=== PATIENT | female | born 1975 | race Caucasian/White ===

== ENCOUNTER 2018-03-21 19:05 | Emergency (ER) | payer OTHER, SELFPAY ==
[2018-03-21 19:30] VITALS: BP 138/85; PULSE 91; RESP 16; TEMP 37.1; O2SAT 99
--- NOTE | 2018-03-21 20:07 | ED.URI ---
HPI - URI/Sore Throat <Itzel Marie PA-C - Last Filed: 03/21/18 22:19> General Chief Complaint: Upper Respiratory Symptoms Stated Complaint: DIFFICULTY BREATHING, COUGH Time Seen by Provider: 03/21/18 19:19 Source: patient Mode of arrival: ambulatory Limitations: no limitations History of Present Illness HPI Narrative: This 42-year-old female who is 16 weeks presents with 3 day history of cough and chest congestion, with sensation of air hunger. She states that exhaling tends to make her cough. She states she has a little bit of pressure in her chest but not pain. She has not noted wheeze. She has also had increasing nasal congestion since yesterday, especially today. She has had some postnasal drip. She does not have earache or sore throat. She denies fever, chills, or sweats. She states that she has had some sinus pressure/headache since we have had the smoky air here, but does not feel like it is a sinus infection. She has allergies, and was also diagnosed with reactive airways earlier in the spring. She was given an inhaler and has been using this, states it has been helping quite a bit until earlier today when it just does not seem to be working as well. Related Data Home Medications Medication Instructions Recorded Confirmed fluticasone [Flonase Allergy 1 spray INTRANASAL QDAY #0 10/08/16 Relief] Previous Rx's Medication Instructions Recorded neomycin-polymyxin B-dexameth 1 drp OPHTH QID #5 ml 10/08/16 [Maxitrol] hydrocodone-acetaminophen [[place]] 1 - 2 tab PO Q6HP PRN #15 tab 04/13/17 budesonide [Pulmicort Flexhaler] 3 inhalation INHALATION BID #1 each 03/21/18 Allergies Allergy/AdvReac Type Severity Reaction Status Date / Time mercury (elemental) Allergy Unknown ANAPHYLAXIS Unverified 11/08/17 12:29 [MERCURY (ELEMENTAL)] latex [LATEX] AdvReac Severe RAASH, Unverified 11/08/17 12:29 BLISTERS amalgam used in dental AdvReac Unknown Uncoded 11/08/17 12:29 Review of Systems <Itzel Marie PA-C - Last Filed: 03/21/18 22:19> Review of Systems All systems reviewed & are unremarkable except as noted in HPI and below Exam <Itzel Marie PA-C - Last Filed: 03/21/18 22:19> Narrative Exam Narrative: GENERAL APPEARANCE: Patient sitting comfortably, in no distress. HEAD: No sinus TTP. EYES: PERRL, EOMI. EARS: Normal auditory canals, TMS intact with normal light reflexes. NOSE: Congested, edematous mucosa ORAL CAVITY: Normal oropharynx. THROAT: No erythema or exudate, PND noted NECK/THYROID: Neck supple, full range of motion, no cervical lymphadenopathy. LUNGS: Clear to auscultation bilaterally, hoarse cough on exam EXTREMITIES: No edema or calf tenderness HEART: RRR without murmur, nl S1, S2, no S3 or S4. EXTREMITIES: No edema, no calf tenderness Initial Vital Signs Initial Vital Signs: Vital Signs Temperature 98.8 F 03/21/18 19:30 Pulse Rate 91 H 03/21/18 19:30 Respiratory Rate 16 03/21/18 19:30 Blood Pressure 138/85 H 03/21/18 19:30 Pulse Oximetry 99 03/21/18 19:30 <Moe Menjivar DO - Last Filed: 03/22/18 07:08> Initial Vital Signs Initial Vital Signs: Vital Signs Temperature 98.8 F 03/21/18 19:30 Pulse Rate 91 H 03/21/18 19:30 Respiratory Rate 16 03/21/18 19:30 Blood Pressure 138/85 H 03/21/18 19:30 Pulse Oximetry 99 03/21/18 19:30 Course <Itzel Marie PA-C - Last Filed: 03/21/18 22:19> Additional Information: Patient is feeling significantly improved in terms of her chest tightness and breathing after nebulizer treatment. She has the symptoms in the setting of known allergies and reactive airways. She has had increasing nasal congestion and sinus pressure and may also have a viral URI on top of our severe air quality problems due to smoke locally. Explained I suspect this is the source of her symptoms. Will start Pulmicort inhaler (she prefers not to use any oral steroids), along with having her increase her albuterol as needed and continuing her current allergy medications. She agrees to return if any acutely worsening symptoms Orders Ordered: Discontinued Medications Albuterol (Ventolin) 2.5 mg INH NOW ONE Stop: 03/21/18 20:19 Last Admin: 03/21/18 20:19 Dose: 2.5 mg Vital Signs - 8 hr 03/21/18 19:30 03/21/18 21:25 Temperature 98.8 F Pulse Rate 91 H 101 H Respiratory Rate 16 20 Blood Pressure 138/85 H 133/76 H Pulse Oximetry 99 99 <Moe Otto, DO - Last Filed: 03/22/18 07:08> Orders Ordered: Discontinued Medications Albuterol (Ventolin) 2.5 mg INH NOW ONE Stop: 03/21/18 20:19 Last Admin: 03/21/18 20:19 Dose: 2.5 mg Vital Signs - 8 hr 03/21/18 19:30 03/21/18 21:25 Temperature 98.8 F Pulse Rate 91 H 101 H Respiratory Rate 16 20 Blood Pressure 138/85 H 133/76 H Pulse Oximetry 99 99 Discharge Plan Departure Patient Disposition: Home Clinical Impression: Mild intermittent reactive airways dysfunction syndrome with acute exacerbation, Environmental allergies, URI (upper respiratory infection) Discharge Date/Time: 03/21/18 21:26 Interventions: ED Discharge Assessment Last Done: 03/21/18 21:25 Instructions: DI for Reactive Airway Disease-Adult Activity Restrictions/Additional Instructions: It appears that you have allergies and probably a virus as well that are exacerbating your reactive airways. Some of this is a reaction to the smoky air we are experiencing now, so please stay indoors with windows closed. Please return right away if you have any acutely worsening symptoms as we talked about. Otherwise, use your albuterol as often as needed for tight chest, difficulty breathing or cough. Start the steroid inhaler that I prescribed for you twice daily. Use it with your spacer and rinse your mouth out after. Continue your allergy medicines including Benadryl at night. Best wishes with your ! Prescriptions: New budesonide [Pulmicort Flexhaler] 90 mcg/actuation aerosol powdr breath activated 3 inhalation INHALATION BID Qty: 1 RF: 0 No Action fluticasone [Flonase Allergy Relief] 9.9 ML spray,suspension 1 spray Intranasal QDAY Qty: 0 RF: 0 neomycin-polymyxin B-dexameth [Maxitrol] 5 ML drops,suspension 1 drp OPHTH QID Qty: 5 RF: 0 hydrocodone-acetaminophen [[place]] 5 MG/325 MG tablet 1 - 2 tab PO Q6HP PRNQty: 15 RF: 0 Referrals: [facility] [Provider Group] <Moe Menjivar, - Last Filed: 03/22/18 07:08> Coszainab ED Attending Dena Attestation: I was available for consultation during this patient's emergency department encounter
[2018-03-21] MEDS: ALBUTEROL 2.5 MG/3 ML NEB (ADULT) INH (20:19)
--- NOTE | 2018-03-21 20:24 | ED_ITS ---
HPI - URI/Sore Throat <Itzel Marie PA-C - Last Filed: 03/21/18 22:19> General Chief Complaint: Upper Respiratory Symptoms Stated Complaint: DIFFICULTY BREATHING, COUGH Time Seen by Provider: 03/21/18 19:19 Source: patient Mode of arrival: ambulatory Limitations: no limitations History of Present Illness HPI Narrative: This 42-year-old female who is 16 weeks presents with 3 day history of cough and chest congestion, with sensation of air hunger. She states that exhaling tends to make her cough. She states she has a little bit of pressure in her chest but not pain. She has not noted wheeze. She has also had increasing nasal congestion since yesterday, especially today. She has had some postnasal drip. She does not have earache or sore throat. She denies fever , chills, or sweats. She states that she has had some sinus pressure/headache since we have had the smoky air here, but does not feel like it is a sinus infection. She has allergies, and was also diagnosed with reactive airways earlier in the spring. She was given an inhaler and has been using this, states it has been helping quite a bit until earlier today when it just does not seem to be working as well. Related Data Home Medications Medication Instructions Recorded Confirmed fluticasone [Flonase Allergy 1 spray INTRANASAL QDAY #0 10/08/16 Relief] Previous Rx's Medication Instructions Recorded neomycin-polymyxin B-dexameth 1 drp OPHTH QID #5 ml 10/08/16 [Maxitrol] hydrocodone-acetaminophen [[place]] 1 - 2 tab PO Q6HP PRN #15 tab 04/13/17 budesonide [Pulmicort Flexhaler] 3 inhalation INHALATION BID #1 each 03/21/18 Allergies Allergy/AdvReac Type Severity Reaction Status Date / Time mercury (elemental) Allergy Unknown ANAPHYLAXIS Unverified 11/08/17 12:29 [MERCURY (ELEMENTAL)] latex [LATEX] AdvReac Severe RAASH, Unverified 11/08/17 12:29 BLISTERS amalgam used in dental AdvReac Unknown Uncoded 11/08/17 12:29 Review of Systems <Itzel aMrie PA-C - Last Filed: 03/21/18 22:19> Review of Systems All systems reviewed & are unremarkable except as noted in HPI and below Exam <Itzel Marie PA-C - Last Filed: 03/21/18 22:19> Narrative Exam Narrative: GENERAL APPEARANCE: Patient sitting comfortably, in no distress. HEAD: No sinus TTP. EYES: PERRL, EOMI. EARS: Normal auditory canals, TMS intact with normal light reflexes. NOSE: Congested, edematous mucosa ORAL CAVITY: Normal oropharynx. THROAT: No erythema or exudate, PND noted NECK/THYROID: Neck supple, full range of motion, no cervical lymphadenopathy. LUNGS: Clear to auscultation bilaterally, hoarse cough on exam EXTREMITIES: No edema or calf tenderness HEART: RRR without murmur, nl S1, S2, no S3 or S4. EXTREMITIES: No edema, no calf tenderness Initial Vital Signs Initial Vital Signs: Vital Signs Temperature 98.8 F 03/21/18 19:30 Pulse Rate 91 H 03/21/18 19:30 Respiratory Rate 16 03/21/18 19:30 Blood Pressure 138/85 H 03/21/18 19:30 Pulse Oximetry 99 03/21/18 19:30 <Moe Menjivar DO - Last Filed: 03/22/18 07:08> Initial Vital Signs Initial Vital Signs: Vital Signs Temperature 98.8 F 03/21/18 19:30 Pulse Rate 91 H 03/21/18 19:30 Respiratory Rate 16 03/21/18 19:30 Blood Pressure 138/85 H 03/21/18 19:30 Pulse Oximetry 99 03/21/18 19:30 Course <Itzel Marie PA-C - Last Filed: 03/21/18 22:19> Additional Information: Patient is feeling significantly improved in terms of her chest tightness and breathing after nebulizer treatment. She has the symptoms in the setting of known allergies and reactive airways. She has had increasing nasal congestion and sinus pressure and may also have a viral URI on top of our severe air quality problems due to smoke locally. Explained I suspect this is the source of her symptoms. Will start Pulmicort inhaler (she prefers not to use any oral steroids), along with having her increase her albuterol as needed and continuing her current allergy medications. She agrees to return if any acutely worsening symptoms Orders Ordered: Discontinued Medications Albuterol (Ventolin) 2.5 mg INH NOW ONE Stop: 03/21/18 20:19 Last Admin: 03/21/18 20:19 Dose: 2.5 mg Vital Signs - 8 hr 03/21/18 19:30 03/21/18 21:25 Temperature 98.8 F Pulse Rate 91 H 101 H Respiratory Rate 16 20 Blood Pressure 138/85 H 133/76 H Pulse Oximetry 99 99 <Moe Otto, DO - Last Filed: 03/22/18 07:08> Orders Ordered: Discontinued Medications Albuterol (Ventolin) 2.5 mg INH NOW ONE Stop: 03/21/18 20:19 Last Admin: 03/21/18 20:19 Dose: 2.5 mg Vital Signs - 8 hr 03/21/18 19:30 03/21/18 21:25 Temperature 98.8 F Pulse Rate 91 H 101 H Respiratory Rate 16 20 Blood Pressure 138/85 H 133/76 H Pulse Oximetry 99 99 Discharge Plan Departure Patient Disposition: Home Clinical Impression: Mild intermittent reactive airways dysfunction syndrome with acute exacerbation , Environmental allergies, URI (upper respiratory infection) Discharge Date/Time: 03/21/18 21:26 Interventions: ED Discharge Assessment Last Done: 03/21/18 21:25 Instructions: DI for Reactive Airway Disease-Adult Activity Restrictions/Additional Instructions: It appears that you have allergies and probably a virus as well that are exacerbating your reactive airways. Some of this is a reaction to the smoky air we are experiencing now, so please stay indoors with windows closed. Please return right away if you have any acutely worsening symptoms as we talked about. Otherwise, use your albuterol as often as needed for tight chest , difficulty breathing or cough. Start the steroid inhaler that I prescribed for you twice daily. Use it with your spacer and rinse your mouth out after. Continue your allergy medicines including Benadryl at night. Best wishes with your ! Prescriptions: New budesonide [Pulmicort Flexhaler] 90 mcg/actuation aerosol powdr breath activated 3 inhalation INHALATION BID Qty: 1 RF: 0 No Action fluticasone [Flonase Allergy Relief] 9.9 ML spray,suspension 1 spray Intranasal QDAY Qty: 0 RF: 0 neomycin-polymyxin B-dexameth [Maxitrol] 5 ML drops,suspension 1 drp OPHTH QID Qty: 5 RF: 0 hydrocodone-acetaminophen [[place]] 5 MG/325 MG tablet 1 - 2 tab PO Q6HP PRNQty: 15 RF: 0 Referrals: [facility] [Provider Group] <Moe Menjivar, - Last Filed: 03/22/18 07:08> Coszainab ED Attending Dena Attestation: I was available for consultation during this patient's emergency department encounter
--- NOTE | 2018-03-21 20:58 | PC.NURSE ---
Pt has cough and difficulty breathing x2 weeks, worsening with smoke exposure outside. Complains of some substernal pressure as well. Developed some sinus congestion today. She is 16.5 weeks . Her albuterol at home is no longer relieving her symptoms.
--- NOTE | 2018-03-21 21:01 | PC.NURSE ---
Coughing less frequent. Chest pressure mostly resolved after albuterol treatment. Provider aware. No new orders.
[2018-03-21 21:25] VITALS: BP 133/76; PULSE 101; RESP 20; O2SAT 99
== END 2018-03-21 21:26 | disposition home or self-care (01) ==
PROVIDERS: Emergency Provider Internal Medicine
DX: J45.909 Unspecified asthma, uncomplicated (principal); J06.9 Acute upper respiratory infection, unspecified; Z91.09 Other allergy status, other than to drugs and biological substances
CPT/HCPCS: 94640; 99283; J7613

== ENCOUNTER 2018-04-20 13:14 | Emergency (ER) | payer OTHER, SELFPAY ==
[2018-04-20 13:20] VITALS: BP 132/81; PULSE 121; RESP 18; TEMP 38.7; O2SAT 100
--- NOTE | 2018-04-20 14:26 | ED.DENTAL ---
HPI - Dental/Oral General Chief complaint: Dental/Oral Stated complaint: 22 WKS PREG,LEFT SIDE FACE SWELLING Time Seen by Provider: 04/20/18 13:36 Source: patient and family Mode of arrival: ambulatory Limitations: no limitations History of Present Illness HPI Narrative: 42-year-old female, at 22 weeks with history of Sjogren's presents with significant, rapidly worsening left facial swelling since 12:30 a.m.. She denies runny nose or sore throat. She denies any injury. She has no chest pain or cough. She denies any abdominal pain nor vaginal bleeding or discharge. She does have a history a filling on her left molar that had fallen out but the patient has no dental pain. She saw her dentist earlier today who did a thorough examination including x-rays and states this is not an odontogenic source, at which point she was transferred here. Her care is provided by [facility] in [place] given her high risk secondary to Sjogren's Onset (ago): hour(s) Duration: constant Severity: moderate Relieving factors: nothing Related Data Home Medications Medication Instructions Recorded Confirmed fluticasone [Flonase Allergy 1 spray INTRANASAL QDAY #0 10/08/16 04/20/18 Relief] acetaminophen 1 tab PO PRN PRN 04/20/18 04/20/18 albuterol sulfate [ProAir HFA] 1 puff INHALATION DIRECTED 04/20/18 04/20/18 aspirin 1 tab PO DAILY 04/20/18 04/20/18 cholecalciferol (vitamin D3) 5,000 unit PO DAILY 04/20/18 04/20/18 [Vitamin D3] cyanocobalamin (vitamin B-12) 1 tab PO DAILY 04/20/18 04/20/18 [Vitamin B-12] cyclosporine [Restasis] 1 drp OPHTHALMIC (EYE) DAILY 04/20/18 04/20/18 fish,bora,flax oils-om3,6,9no1 1 cap PO DAILY 04/20/18 04/20/18 [[place] 3-6-9] folic acid 0.4 mg PO DAILY 04/20/18 04/20/18 loratadine 10 mg PO DAILY 04/20/18 04/20/18 olopatadine [Pazeo] 1 drp OPHTHALMIC (EYE) DIRECTED 04/20/18 04/20/18 [id number] fum-folic 1 tab PO DAILY 04/20/18 04/20/18 Previous Rx's Medication Instructions Recorded amoxicillin-pot clavulanate 1 tab PO BID #20 tab 04/20/18 [Augmentin] prednisone See Label Instructions .ROUTE 04/20/18 .COMPLEX #30 tab Allergies Allergy/AdvReac Type Severity Reaction Status Date / Time mercury (elemental) Allergy Unknown ANAPHYLAXIS Unverified 11/08/17 12:29 [MERCURY (ELEMENTAL)] latex [LATEX] AdvReac Severe RAASH, Unverified 11/08/17 12:29 BLISTERS amalgam used in dental AdvReac Unknown Uncoded 11/08/17 12:29 Review of Systems Review of Systems All systems reviewed & are unremarkable except as noted in HPI and below Constitutional Reports chills, Reports fever(s), Denies lethargy and Denies weakness Eyes Denies change in vision, Denies eye discharge, Denies irritation and Denies loss of vision ENT Ears, Nose, Mouth, and Throat: Denies change in voice, Reports facial pain, Denies neck pain and Denies sore throat Comments: facial swelling Cardiovascular Denies chest pain, Reports rapid heart rate, Denies irregular heart rhythm, Denies lightheadedness, Denies palpitations, Denies dyspnea, Denies dyspnea on exertion and Denies orthopnea Respiratory Denies cough, Denies dyspnea, Denies dyspnea on exertion and Denies wheezing Gastrointestinal Gastrointestinal: Denies abdominal pain, Denies change in bowel habits, Denies diarrhea, Denies nausea and Denies vomiting Genitourinary Denies hematuria, Denies flank pain, Denies urinary incontinence and Denies urinary urgency Musculoskeletal Denies neck pain Integumentary/Breasts Denies pruritus, Denies erythema, Denies rash and Denies wounds Neurologic Denies confusion, Denies loss of vision and Denies weakness Psychiatric Denies anxiety, Denies confusion, Denies depression, Denies homicidal ideation and Denies suicidal ideation Endocrine Denies palpitations Hematologic/Lymphatic Denies easy bruising Allergic/Immunologic Denies wheezing [facility] Medical History Pollen allergies (Chronic) Reactive airway disease (Chronic) Sjogrens syndrome (Chronic) Social History (Reviewed 04/20/18 @ 14:39 by LACY Avalos Smoking Status: Former smoker Exam Narrative Exam Narrative: Pleasant 42-year-old female in moderate distress Initial Vital Signs Initial Vital Signs: Vital Signs Temperature 101.7 F H 04/20/18 13:20 Pulse Rate 121 H 04/20/18 13:20 Respiratory Rate 18 04/20/18 13:20 Blood Pressure 132/81 04/20/18 13:20 Pulse Oximetry 100 04/20/18 13:20 Const General: cooperative, well developed and in distress Nutritional Appearance: well nourished Orientation: alert, awake, oriented x3 and not confused HENOK Head: normocephalic and atraumatic Ears: external ears normal and TM's normal bilaterally Nose: external nose normal and No nasal discharge Face and sinus: sinuses nontender, erythema, edema (Significant left-sided facial swelling with overlying erythema), no sinus tenderness and No dry mucous membranes Mouth: oral mucosae normal and moist mucous membranes Teeth and gingiva: dentition normal Throat: tonsils normal and uvula midline Eyes General: appearance normal, both eyes and all related structures Eyelids: eyelids normal Conjunctivae: conjunctivae normal Sclera: sclerae normal Pupils: PERRL EOM: EOM intact bilaterally Neck Neck: normal visual inspection, trachea midline, No lymphadenopathy, No midline deformity and No JVD Lymphatic: No lymphedema Chest Chest: normal inspection of the chest Cardio Rate: regular rate Rhythm: regular rhythm Heart Sounds: no click, no gallops, no murmurs and no rubs Pulses: normal peripheral pulses GI Inspection: non-distended Palpation: soft, no hepatosplenomegaly, No guarding, No pulsatile mass and No tender Auscultation: normal bowel sounds Other: Gravid uterus to the umbilicus Back/Spine/Pelvis Back: No CVA tenderness Cervical Spine: cervical ROM normal and No pain with cervical ROM Thoracic/Lumbar Spine: thoracic and lumbar spine normal to inspection Skin General: no rashes or lesions noted, No jaundice and No petechiae Neuro General: alert, oriented x3, gait normal and no focal motor deficits Speech: speech normal Extrem General: full ROM, no clubbing, cyanosis or edema, no pedal edema and no calf tenderness Course Course Narrative: Lengthy discussion at the bedside with patient and her regarding the choice IV antibiotics as well as CT scan with IV contrast for evaluation the significant facial swelling, fever and tachycardia. They understand the risks and benefits of the proposed therapies and are in agreement with this plan. They have a signed consent Orders Ordered: ED Orders 04/20/18 14:15 Complete Blood Count AUTO DIFF Stat Lactate (Lactic Acid) Stat Procalcitonin Stat 04/20/18 14:34 Basic Metabolic Panel Stat 04/20/18 14:48 CT soft tissue neck w con Stat 04/20/18 15:25 Blood Culture Stat Discontinued Medications Sodium Chloride (Normal Saline 0.9%) 1,000 mls @ 1,000 mls/hr IV BOLUS ONE Stop: 04/20/18 14:57 Last Admin: 04/20/18 14:48 Dose: 1,000 mls/hr Ampicillin Sodium/Sulbactam (Sodium 3 gm/ Sodium Chloride) 100 mls @ 100 mls/hr IV NOW ONE Stop: 04/20/18 14:17 Last Admin: 04/20/18 14:48 Dose: 100 mls/hr Consultations Consultation #1: call to ENT and review of patient's history and physical, labs and imaging. He recommends high-dose antibiotics and steroids with close follow-up Called to patient's terrazzo worker apprentice to consult with regarding medications and she is fully on board with Augmentin and prednisone. She will put in a stat referral to ENT on the patient's behalf Time: 15:59 Vital Signs - 8 hr 04/20/18 13:20 04/20/18 15:52 Temperature 101.7 F H 100.3 F H Pulse Rate 121 H Respiratory Rate 18 Blood Pressure 132/81 Pulse Oximetry 100 MDM - Dental/Oral Medical Records Attestation: I reviewed the patient's medical records. Lab Data Result diagrams: 04/20/18 14:15 04/20/18 14:34 Lab Results 04/20/18 04/20/18 04/20/18 Range/Units 14:15 14:15 14:15 WBC 18.0 H (4.5-11.0) X10^3/uL RBC 3.53 L (4.0-5.2) X10^6/uL Hgb 11.1 L (12.0-16.0) g/dL Hct 32.6 L (36-46) % MCV 92.3 (80-100) fL MCH 31.4 (26-34) PG MCHC 34.0 (30-36) % RDW 13.2 (11.6-14.8) % Plt Count 183 (150-400) X10^3/uL Neut % (Auto) 93.0 H (50-75) % Lymph % (Auto) 2.9 L (25-40) % [place] % (Auto) 3.9 (3-14) % Eos % (Auto) 0.0 L (2-4) % Baso % (Auto) 0.2 (0-2) % Neut # (Auto) 39237 H (5643-6780) /uL Sodium (137-145) mmol/L Potassium (3.4-5.1) mmol/L Chloride (98-107) mmol/L Carbon Dioxide (22-32) mmol/L BUN (7-17) mg/dL Creatinine (0.52-1.04) mg/dL Estimated GFR (>60) mL/min BUN/Creatinine Ratio (6-22) Glucose (70-100) mg/dL Lactate 0.8 (0.7-2.1) mmol/L Calcium (8.4-10.2) mg/dL Procalcitonin < 0.05 (<0.5) ng/mL 04/20/18 Range/Units 14:34 WBC (4.5-11.0) X10^3/uL RBC (4.0-5.2) X10^6/uL Hgb (12.0-16.0) g/dL Hct (36-46) % MCV (80-100) fL MCH (26-34) PG MCHC (30-36) % RDW (11.6-14.8) % Plt Count (150-400) X10^3/uL Neut % (Auto) (50-75) % Lymph % (Auto) (25-40) % [place] % (Auto) (3-14) % Eos % (Auto) (2-4) % Baso % (Auto) (0-2) % Neut # (Auto) (2791-4112) /uL Sodium 135 L (137-145) mmol/L Potassium 3.4 (3.4-5.1) mmol/L Chloride 103 (98-107) mmol/L Carbon Dioxide 19 L (22-32) mmol/L BUN 8 (7-17) mg/dL Creatinine 0.50 L (0.52-1.04) mg/dL Estimated GFR > 60.0 (>60) mL/min BUN/Creatinine Ratio 16.0 (6-22) Glucose 117 H (70-100) mg/dL Lactate (0.7-2.1) mmol/L Calcium 9.2 (8.4-10.2) mg/dL Procalcitonin (<0.5) ng/mL Discharge Plan Departure Patient Disposition: Home Clinical Impression: Acute sialoadenitis Instructions: DI for Parotitis-Adult Activity Restrictions/Additional Instructions: *You have been diagnosed with [ acute sialoadenitis ] *What to do: *Take medications as directed: The have been electronically transmitted to [facility] hydro request * your glove parts cutter has put in a stat referral for ENT for Monday, please tracking call her office for any troubles. Please return immediately for any worsening or persistent symptoms such as increasing swelling, pain difficulty swallowing or breathing, or other Prescriptions: New amoxicillin-pot clavulanate [Augmentin] 875-125 mg tablet 1 tab PO BID Qty: 20 RF: 0 prednisone 10 mg tablet See Label Instructions .ROUTE .COMPLEX Qty: 30 RF: 0 No Action fluticasone [Flonase Allergy Relief] 9.9 ML spray,suspension 1 spray Intranasal QDAY Qty: 0 RF: 0 aspirin 81 mg tablet,delayed release (DR/EC) 1 tab PO DAILY RF: 0 albuterol sulfate [ProAir HFA] 90 mcg/actuation HFA aerosol inhaler 1 puff Inhalation DIRECTED RF: 0 loratadine 10 mg tablet 10 mg PO DAILY RF: 0 [id number] fum-folic 27 mg iron- 800 mcg tablet 1 tab PO DAILY RF: 0 olopatadine [Pazeo] 0.7 % drops 1 drp ophthalmic (eye) DIRECTED RF: 0 acetaminophen 325 mg Tablet 1 tab PO PRN PRN (Reason: Pain, Mild) RF: 0 cyanocobalamin (vitamin B-12) [Vitamin B-12] 1,000 mcg Tablet 1 tab PO DAILY RF: 0 folic acid 400 mcg Tablet 0.4 mg PO DAILY RF: 0 cyclosporine [Restasis] 0.05 % Dropperette 1 drp ophthalmic (eye) DAILY RF: 0 fish,bora,flax oils-om3,6,9no1 [[place] 3-6-9] 400-400-400 mg Capsule 1 cap PO DAILY RF: 0 cholecalciferol (vitamin D3) [Vitamin D3] 5,000 unit Tablet 5,000 unit PO DAILY RF: 0 Referrals: Kuldeep Joe MD [Physician] -
[2018-04-20 14:28] LABS: Add Manual Diff / Slide Review NO; Basophils Percent Auto 0.2 % (0-2); Hematocrit 32.6 % (36-46); Hemoglobin 11.1 g/dL (12.0-16.0); Lymphocytes Percent Auto 2.9 % (25-40); Mean Corpuscular Hemoglobin 31.4 PG (26-34); Mean Corpuscular Volume 92.3 fL (80-100); Monocytes Percent Auto 3.9 % (3-14); Neutrophils Absolute Auto 16700 /uL (3000-5900); Platelet Count 183 X10^3/uL (150-400); Red Blood Cell Count 3.53 X10^6/uL (4.0-5.2); Red Cell Distribution Width 13.2 % (11.6-14.8)
--- NOTE | 2018-04-20 14:42 | ED_ITS ---
HPI - Dental/Oral General Chief complaint: Dental/Oral Stated complaint: 22 WKS PREG,LEFT SIDE FACE SWELLING Time Seen by Provider: 04/20/18 13:36 Source: patient and family Mode of arrival: ambulatory Limitations: no limitations History of Present Illness HPI Narrative: 42-year-old female, at 22 weeks with history of Sjogren' s presents with significant, rapidly worsening left facial swelling since 12:30 a.m.. She denies runny nose or sore throat. She denies any injury. She has no chest pain or cough. She denies any abdominal pain nor vaginal bleeding or discharge. She does have a history a filling on her left molar that had fallen out but the patient has no dental pain. She saw her dentist earlier today who did a thorough examination including x-rays and states this is not an odontogenic source, at which point she was transferred here. Her care is provided by [facility] in [place] given her high risk secondary to Sjogren's Onset (ago): hour(s) Duration: constant Severity: moderate Relieving factors: nothing Related Data Home Medications Medication Instructions Recorded Confirmed fluticasone [Flonase Allergy 1 spray INTRANASAL QDAY #0 10/08/16 04/20/18 Relief] acetaminophen 1 tab PO PRN PRN 04/20/18 04/20/18 albuterol sulfate [ProAir HFA] 1 puff INHALATION DIRECTED 04/20/18 04/20/18 aspirin 1 tab PO DAILY 04/20/18 04/20/18 cholecalciferol (vitamin D3) 5,000 unit PO DAILY 04/20/18 04/20/18 [Vitamin D3] cyanocobalamin (vitamin B-12) 1 tab PO DAILY 04/20/18 04/20/18 [Vitamin B-12] cyclosporine [Restasis] 1 drp OPHTHALMIC (EYE) DAILY 04/20/18 04/20/18 fish,bora,flax oils-om3,6,9no1 1 cap PO DAILY 04/20/18 04/20/18 [[place] 3-6-9] folic acid 0.4 mg PO DAILY 04/20/18 04/20/18 loratadine 10 mg PO DAILY 04/20/18 04/20/18 olopatadine [Pazeo] 1 drp OPHTHALMIC (EYE) DIRECTED 04/20/18 04/20/18 [id number] fum-folic 1 tab PO DAILY 04/20/18 04/20/18 Previous Rx's Medication Instructions Recorded amoxicillin-pot clavulanate 1 tab PO BID #20 tab 04/20/18 [Augmentin] prednisone See Label Instructions .ROUTE 04/20/18 .COMPLEX #30 tab Allergies Allergy/AdvReac Type Severity Reaction Status Date / Time mercury (elemental) Allergy Unknown ANAPHYLAXIS Unverified 11/08/17 12:29 [MERCURY (ELEMENTAL)] latex [LATEX] AdvReac Severe RAASH, Unverified 11/08/17 12:29 BLISTERS amalgam used in dental AdvReac Unknown Uncoded 11/08/17 12:29 Review of Systems Review of Systems All systems reviewed & are unremarkable except as noted in HPI and below Constitutional Reports chills, Reports fever(s), Denies lethargy and Denies weakness Eyes Denies change in vision, Denies eye discharge, Denies irritation and Denies loss of vision ENT Ears, Nose, Mouth, and Throat: Denies change in voice, Reports facial pain, Denies neck pain and Denies sore throat Comments: facial swelling Cardiovascular Denies chest pain, Reports rapid heart rate, Denies irregular heart rhythm, Denies lightheadedness, Denies palpitations, Denies dyspnea, Denies dyspnea on exertion and Denies orthopnea Respiratory Denies cough, Denies dyspnea, Denies dyspnea on exertion and Denies wheezing Gastrointestinal Gastrointestinal: Denies abdominal pain, Denies change in bowel habits, Denies diarrhea, Denies nausea and Denies vomiting Genitourinary Denies hematuria, Denies flank pain, Denies urinary incontinence and Denies urinary urgency Musculoskeletal Denies neck pain Integumentary/Breasts Denies pruritus, Denies erythema, Denies rash and Denies wounds Neurologic Denies confusion, Denies loss of vision and Denies weakness Psychiatric Denies anxiety, Denies confusion, Denies depression, Denies homicidal ideation and Denies suicidal ideation Endocrine Denies palpitations Hematologic/Lymphatic Denies easy bruising Allergic/Immunologic Denies wheezing [facility] Medical History Pollen allergies (Chronic) Reactive airway disease (Chronic) Sjogrens syndrome (Chronic) Social History (Reviewed 04/20/18 @ 14:39 by LACY Avalos Smoking Status: Former smoker Exam Narrative Exam Narrative: Pleasant 42-year-old female in moderate distress Initial Vital Signs Initial Vital Signs: Vital Signs Temperature 101.7 F H 04/20/18 13:20 Pulse Rate 121 H 04/20/18 13:20 Respiratory Rate 18 04/20/18 13:20 Blood Pressure 132/81 04/20/18 13:20 Pulse Oximetry 100 04/20/18 13:20 Const General: cooperative, well developed and in distress Nutritional Appearance: well nourished Orientation: alert, awake, oriented x3 and not confused HENIN Head: normocephalic and atraumatic Ears: external ears normal and TM's normal bilaterally Nose: external nose normal and No nasal discharge Face and sinus: sinuses nontender, erythema, edema (Significant left-sided facial swelling with overlying erythema), no sinus tenderness and No dry mucous membranes Mouth: oral mucosae normal and moist mucous membranes Teeth and gingiva: dentition normal Throat: tonsils normal and uvula midline Eyes General: appearance normal, both eyes and all related structures Eyelids: eyelids normal Conjunctivae: conjunctivae normal Sclera: sclerae normal Pupils: PERRL EOM: EOM intact bilaterally Neck Neck: normal visual inspection, trachea midline, No lymphadenopathy, No midline deformity and No JVD Lymphatic: No lymphedema Chest Chest: normal inspection of the chest Cardio Rate: regular rate Rhythm: regular rhythm Heart Sounds: no click, no gallops, no murmurs and no rubs Pulses: normal peripheral pulses GI Inspection: non-distended Palpation: soft, no hepatosplenomegaly, No guarding, No pulsatile mass and No tender Auscultation: normal bowel sounds Other: Gravid uterus to the umbilicus Back/Spine/Pelvis Back: No CVA tenderness Cervical Spine: cervical ROM normal and No pain with cervical ROM Thoracic/Lumbar Spine: thoracic and lumbar spine normal to inspection Skin General: no rashes or lesions noted, No jaundice and No petechiae Neuro General: alert, oriented x3, gait normal and no focal motor deficits Speech: speech normal Extrem General: full ROM, no clubbing, cyanosis or edema, no pedal edema and no calf tenderness Course Course Narrative: Lengthy discussion at the bedside with patient and her regarding the choice IV antibiotics as well as CT scan with IV contrast for evaluation the significant facial swelling, fever and tachycardia. They understand the risks and benefits of the proposed therapies and are in agreement with this plan. They have a signed consent Orders Ordered: ED Orders 04/20/18 14:15 Complete Blood Count AUTO DIFF Stat Lactate (Lactic Acid) Stat Procalcitonin Stat 04/20/18 14:34 Basic Metabolic Panel Stat 04/20/18 14:48 CT soft tissue neck w con Stat 04/20/18 15:25 Blood Culture Stat Discontinued Medications Sodium Chloride (Normal Saline 0.9%) 1,000 mls @ 1,000 mls/hr IV BOLUS ONE Stop: 04/20/18 14:57 Last Admin: 04/20/18 14:48 Dose: 1,000 mls/hr Ampicillin Sodium/Sulbactam (Sodium 3 gm/ Sodium Chloride) 100 mls @ 100 mls/ hr IV NOW ONE Stop: 04/20/18 14:17 Last Admin: 04/20/18 14:48 Dose: 100 mls/hr Consultations Consultation #1: call to ENT and review of patient's history and physical, labs and imaging. 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 She will put in a stat referral to ENT on the patient's behalf Time: 15:59 Vital Signs - 8 hr 04/20/18 13:20 04/20/18 15:52 Temperature 101.7 F H 100.3 F H Pulse Rate 121 H Respiratory Rate 18 Blood Pressure 132/81 Pulse Oximetry 100 MDM - Dental/Oral Medical Records Attestation: I reviewed the patient's medical records. Lab Data Result diagrams: 04/20/18 14:15 04/20/18 14:34 Lab Results 04/20/18 04/20/18 04/20/18 Range/Units 14:15 14:15 14:15 WBC 18.0 H (4.5-11.0) X10^3/uL RBC 3.53 L (4.0-5.2) X10^6/uL Hgb 11.1 L (12.0-16.0) g/dL Hct 32.6 L (36-46) % MCV 92.3 (80-100) fL MCH 31.4 (26-34) PG MCHC 34.0 (30-36) % RDW 13.2 (11.6-14.8) % Plt Count 183 (150-400) X10^3/uL Neut % (Auto) 93.0 H (50-75) % Lymph % (Auto) 2.9 L (25-40) % [place] % (Auto) 3.9 (3-14) % Eos % (Auto) 0.0 L (2-4) % Baso % (Auto) 0.2 (0-2) % Neut # (Auto) 21258 H (6907-8376) /uL Sodium (137-145) mmol/L Potassium (3.4-5.1) mmol/L Chloride (98-107) mmol/L Carbon Dioxide (22-32) mmol/L BUN (7-17) mg/dL Creatinine (0.52-1.04) mg/dL Estimated GFR (>60) mL/min BUN/Creatinine Ratio (6-22) Glucose (70-100) mg/dL Lactate 0.8 (0.7-2.1) mmol/L Calcium (8.4-10.2) mg/dL Procalcitonin < 0.05 (<0.5) ng/mL 04/20/18 Range/Units 14:34 WBC (4.5-11.0) X10^3/uL RBC (4.0-5.2) X10^6/uL Hgb (12.0-16.0) g/dL Hct (36-46) % MCV (80-100) fL MCH (26-34) PG MCHC (30-36) % RDW (11.6-14.8) % Plt Count (150-400) X10^3/uL Neut % (Auto) (50-75) % Lymph % (Auto) (25-40) % [place] % (Auto) (3-14) % Eos % (Auto) (2-4) % Baso % (Auto) (0-2) % Neut # (Auto) (3987-0738) /uL Sodium 135 L (137-145) mmol/L Potassium 3.4 (3.4-5.1) mmol/L Chloride 103 (98-107) mmol/L Carbon Dioxide 19 L (22-32) mmol/L BUN 8 (7-17) mg/dL Creatinine 0.50 L (0.52-1.04) mg/dL Estimated GFR > 60.0 (>60) mL/min BUN/Creatinine Ratio 16.0 (6-22) Glucose 117 H (70-100) mg/dL Lactate (0.7-2.1) mmol/L Calcium 9.2 (8.4-10.2) mg/dL Procalcitonin (<0.5) ng/mL Discharge Plan Departure Patient Disposition: Home Clinical Impression: Acute sialoadenitis Instructions: DI for Parotitis-Adult Activity Restrictions/Additional Instructions: *You have been diagnosed with [ acute sialoadenitis ] *What to do: *Take medications as directed: The have been electronically transmitted to [facility] hydro request * your tearer has put in a stat referral for ENT for Monday, please tracking call her office for any troubles. Please return immediately for any worsening or persistent symptoms such as increasing swelling, pain difficulty swallowing or breathing, or other Prescriptions: New amoxicillin-pot clavulanate [Augmentin] 875-125 mg tablet 1 tab PO BID Qty: 20 RF: 0 prednisone 10 mg tablet See Label Instructions .ROUTE .COMPLEX Qty: 30 RF: 0 No Action fluticasone [Flonase Allergy Relief] 9.9 ML spray,suspension 1 spray Intranasal QDAY Qty: 0 RF: 0 aspirin 81 mg tablet,delayed release (DR/EC) 1 tab PO DAILY RF: 0 albuterol sulfate [ProAir HFA] 90 mcg/actuation HFA aerosol inhaler 1 puff Inhalation DIRECTED RF: 0 loratadine 10 mg tablet 10 mg PO DAILY RF: 0 [id number]-[id number] fum-folic 27 mg iron- 800 mcg tablet 1 tab PO DAILY RF: 0 olopatadine [Pazeo] 0.7 % drops 1 drp ophthalmic (eye) DIRECTED RF: 0 acetaminophen 325 mg Tablet 1 tab PO PRN PRN (Reason: Pain, Mild) RF: 0 cyanocobalamin (vitamin B-12) [Vitamin B-12] 1,000 mcg Tablet 1 tab PO DAILY RF: 0 folic acid 400 mcg Tablet 0.4 mg PO DAILY RF: 0 cyclosporine [Restasis] 0.05 % Dropperette 1 drp ophthalmic (eye) DAILY RF: 0 fish,bora,flax oils-om3,6,9no1 [[place] 3-6-9] 400-400-400 mg Capsule 1 cap PO DAILY RF: 0 cholecalciferol (vitamin D3) [Vitamin D3] 5,000 unit Tablet 5,000 unit PO DAILY RF: 0 Referrals: Kuldeep Joe MD [Physician] -
[2018-04-20 14:44] LABS: Lactate (Lactic Acid) 0.8 mmol/L (0.7-2.1)
[2018-04-20] MEDS: SODIUM CHLORIDE 0.9% 1,000 ML 1000 ML IV ×2 (14:48→17:55)
[2018-04-20] MEDS: AMPICILLIN/SULBACTAM 3 GM 3 GM in SODIUM CHLORIDE 0.9% 100 ML IV (14:48)
--- NOTE | 2018-04-20 14:48 | DI.CT.S_ITS ---
PROCEDURE: CT SOFT TISSUE NECK W CON INDICATIONS: facial swelling, pain, fever tachycardia, 22wks TECHNIQUE: After the administration of intravenous contrast, 3.0 mm axial sections acquired from the sella to the aortic arch. Additional oblique axial 3.0 mm sections acquired through the pharynx. 3 mm thick coronal and sagittal reformats were generated. For radiation dose reduction, the following was used: automated exposure control. COMPARISON: None. FINDINGS: Image quality: Excellent. Lymph nodes: No frankly enlarged lymph nodes are seen, although numerous borderline bilateral neck lymph nodes are seen can be seen within both sides of the neck. Vessels: Visualized vasculature appears patent. Neck spaces: The oropharynx, nasopharynx, and pharynx demonstrate no mucosal lesions. The vocal cords, false vocal cords, pyriform sinuses, epiglottis, vallecula, and tongue base all appear normal. Extramucosal spaces appear unremarkable. Glands: The left parotid gland is diffusely abnormal, with numerous cystic lesions within it. There is surrounding stranding within the adjacent subcutaneous fat. Similar findings are seen of the right parotid gland, yet much less severe. Numerous small stones are seen within the parotid glands. The submandibular glands are not well-seen. Thyroid gland demonstrates no significant CT abnormality. Miscellaneous: Visualized brain and orbits appear normal. Lung apices appear clear. Superficial soft tissues appear normal. Bones: No suspicious bony lesions. Visualized sinuses and mastoids appear unremarkable. IMPRESSION: Abnormal appearance of the left parotid gland, which is enlarged and hyperenhancing and demonstrates numerous cystic foci within it. There is overlying inflammatory change seen within the subcutaneous fat. The appearance is nonspecific, and may relate to lymphoepithelial cysts, chronic stone disease, parotid inflammation, and Sjogren's syndrome. Neoplastic involvement, including lymphoma and salivary duct carcinoma, is possible, yet considered to be less likely. The right parotid gland is also involved, but to a much less severe degree. Please correlate with known patient history and any prior outside imaging studies. Borderline prominent bilateral cervical lymph nodes are seen, which are likely reactive in nature. The submandibular glands are not well-seen on this study. Dictated by: Nemesio Mena M.D. on 04/20/2018 at 14:53 Transcribed by: SOFIYA on 04/20/2018 at 15:12 Approved by: Nemesio Mena M.D. on 04/20/2018 at 16:18
[2018-04-20 14:53] LABS: Blood Urea Nitrogen 8 mg/dL (7-17); Calcium 9.2 mg/dL (8.4-10.2); Carbon Dioxide 19 mmol/L (22-32); Chloride 103 mmol/L (98-107); Estimated Glomerular Filt Rate > 60.0 mL/min (>60); Glucose 117 mg/dL (70-100); HEMOLYSIS < 15 (0-50); Potassium 3.4 mmol/L (3.4-5.1); Sodium 135 mmol/L (137-145)
[2018-04-20 15:06] LABS: Procalcitonin < 0.05 ng/mL (<0.5)
[2018-04-20 15:52] VITALS: TEMP 37.9
[2018-04-20] MEDS: ONDANSETRON 4 MG/2 ML INJ IV (17:29)
[2018-04-20 17:40] VITALS: BP 120/59; PULSE 118; TEMP 38.9
[2018-04-20 18:10] VITALS: TEMP 38.9
[2018-04-20] MEDS: ACETAMINOPHEN 325 MG TABLET 650 MG PO (18:10)
[2018-04-20 18:55] VITALS: TEMP 37.7
[2018-04-20 18:56] VITALS: BP 115/60; PULSE 109; TEMP 37.7; O2SAT 96
== END 2018-04-20 18:57 | disposition home or self-care (01) ==
PROVIDERS: Emergency Provider Emergency Medicine; Family Provider Obstetrics & Gynecology; PCP Family Medicine
DX: K11.21 Acute sialoadenitis (principal); Z3A.22 22 weeks gestation of pregnancy
CPT/HCPCS: 36415; 36591; 70491; 80048; 83605; 84145; 85025; 87040; 96361; 96365; 96366; 96375; 99283; 99285; J0295; J2405; Q9967

== ENCOUNTER 2018-04-21 18:23 | Emergency (ER) | payer OTHER, SELFPAY ==
[2018-04-21 18:40] VITALS: BP 122/74; PULSE 90; RESP 18; TEMP 36.9; O2SAT 98; BMI 28.8
[2018-04-21 19:00] VITALS: BP 105/67
--- NOTE | 2018-04-21 19:09 | ED.SKABFB ---
HPI - Skin/Abscess/Foreign Bdy General Chief complaint: Skin/Abscess/Foreign Body Stated complaint: LEFT SIDE OF FACE IS SWELLING PAIN Time Seen by Provider: 04/21/18 18:44 Source: patient, family and RN notes reviewed Mode of arrival: ambulatory Limitations: no limitations History of Present Illness HPI narrative: The patient is a 42-year-old female currently 22 weeks with history of soda rinse. She has left-sided facial swelling which started abruptly 36 hr ago. She was seen evaluated yesterday diagnosed with sialoenitis. She was given fluids IV Unasyn and started on prednisone. She says she feels like the swelling is going on around her neck and the pain is coming and going and quite intense at times. She has no trouble swallowing or breathing. He is not feel like her throat is closing. She has been able to keep some fluids down. She has not had her night dose of antibiotics. MD complaint: other Related Data Home Medications Medication Instructions Recorded Confirmed fluticasone [Flonase Allergy 1 spray INTRANASAL QDAY #0 10/08/16 04/20/18 Relief] acetaminophen 1 tab PO PRN PRN 04/20/18 04/20/18 albuterol sulfate [ProAir HFA] 1 puff INHALATION DIRECTED 04/20/18 04/20/18 aspirin 1 tab PO DAILY 04/20/18 04/20/18 cholecalciferol (vitamin D3) 5,000 unit PO DAILY 04/20/18 04/20/18 [Vitamin D3] cyanocobalamin (vitamin B-12) 1 tab PO DAILY 04/20/18 04/20/18 [Vitamin B-12] cyclosporine [Restasis] 1 drp OPHTHALMIC (EYE) DAILY 04/20/18 04/20/18 fish,bora,flax oils-om3,6,9no1 1 cap PO DAILY 04/20/18 04/20/18 [[place] 3-6-9] folic acid 0.4 mg PO DAILY 04/20/18 04/20/18 loratadine 10 mg PO DAILY 04/20/18 04/20/18 olopatadine [Pazeo] 1 drp OPHTHALMIC (EYE) DIRECTED 04/20/18 04/20/18 [id number] fum-folic 1 tab PO DAILY 04/20/18 04/20/18 Previous Rx's Medication Instructions Recorded amoxicillin-pot clavulanate 1 tab PO BID #20 tab 04/20/18 [Augmentin] ondansetron [Zofran ODT] 4 mg PO Q6H PRN #14 tab 04/20/18 prednisone See Label Instructions .ROUTE 04/20/18 .COMPLEX #30 tab hydrocodone-acetaminophen [[place]] 1 tab PO Q4-6H PRN #10 tab 04/21/18 Allergies Allergy/AdvReac Type Severity Reaction Status Date / Time mercury (elemental) Allergy Unknown ANAPHYLAXIS Unverified 11/08/17 12:29 [MERCURY (ELEMENTAL)] latex [LATEX] AdvReac Severe RAASH, Unverified 11/08/17 12:29 BLISTERS amalgam used in dental AdvReac Unknown Uncoded 11/08/17 12:29 Review of Systems Review of Systems All systems reviewed & are unremarkable except as noted in HPI and below Constitutional Denies chills, Denies fever(s), Denies lethargy and Denies weakness ENT Ears, Nose, Mouth, and Throat: Reports as per HPI Cardiovascular Denies chest pain, Denies irregular heart rhythm, Denies lightheadedness, Denies palpitations, Denies dyspnea, Denies dyspnea on exertion and Denies orthopnea Respiratory Denies cough, Denies dyspnea, Denies dyspnea on exertion and Denies wheezing Gastrointestinal Gastrointestinal: Denies abdominal pain, Denies change in bowel habits, Denies diarrhea, Denies nausea and Denies vomiting Musculoskeletal Denies back pain, Denies muscle weakness, Denies numbness and Denies tingling Integumentary/Breasts Denies pruritus, Denies erythema, Denies rash and Denies wounds Neurologic Denies numbness, Denies tingling and Denies weakness Endocrine Denies palpitations Allergic/Immunologic Denies wheezing PFSH Social History Smoking Status: Former smoker Exam Initial Vital Signs Initial Vital Signs: Vital Signs Temperature 98.5 F 04/21/18 18:40 Pulse Rate 90 04/21/18 18:40 Respiratory Rate 18 04/21/18 18:40 Blood Pressure 122/74 04/21/18 18:40 Pulse Oximetry 98 04/21/18 18:40 Const General: cooperative and well developed Nutritional Appearance: well nourished Orientation: alert, awake, oriented x3 and not confused HENMI Face and sinus: other (Left-sided facial swelling on no erythema no significant neck swelling no trismus) Mouth: oral mucosae normal Neck Neck: normal visual inspection, full ROM, no meningeal signs, trachea midline, supple and No anterior neck swelling Chest Chest: normal inspection of the chest Resp Effort & Inspection: normal respiratory effort and no use of accessory muscles Auscultation: clear to auscultation bilaterally Cardio Rhythm: regular rhythm Heart Sounds: S1 normal and S2 normal Skin General: no rashes or lesions noted, No jaundice and No petechiae Neuro General: alert, oriented x3, gait normal and no focal motor deficits Speech: speech normal Course Orders Ordered: ED Orders 04/21/18 19:35 Basic Metabolic Panel Stat Complete Blood Count AUTO DIFF Stat 04/21/18 20:00 Lactate (Lactic Acid) Stat Discontinued Medications Dexamethasone (Decadron) 10 mg IV NOW ONE Stop: 04/21/18 19:32 Last Admin: 04/21/18 19:53 Dose: 10 mg Ampicillin Sodium/Sulbactam (Sodium 3 gm/ Sodium Chloride) 100 mls @ 100 mls/hr IV NOW ONE Stop: 04/21/18 19:32 Last Infusion: 04/21/18 21:59 Dose: 0 mls/hr Admin: 04/21/18 20:28 Dose: 100 mls/hr Sodium Chloride (Normal Saline 0.9%) 1,000 mls @ 1,000 mls/hr IV BOLUS ONE Stop: 04/21/18 20:30 Last Infusion: 04/21/18 21:59 Dose: 1,000 mls/hr Admin: 04/21/18 19:51 Dose: 1,000 mls/hr Morphine Sulfate (Morphine) 2 mg IV NOW ONE Stop: 04/21/18 19:32 Last Admin: 04/21/18 19:53 Dose: 2 mg Vital Signs - 8 hr 04/21/18 18:40 04/21/18 19:00 04/21/18 20:30 Temperature 98.5 F Pulse Rate 90 76 Respiratory Rate 18 Blood Pressure 122/74 Blood Pressure [Right Arm] 105/67 119/74 Pulse Oximetry 98 97 04/21/18 21:30 Temperature Pulse Rate 86 Respiratory Rate Blood Pressure Blood Pressure [Right Arm] 125/82 Pulse Oximetry 98 MDM - Skin/Abscess/Foreign Bdy Lab Data Attestation: I reviewed the patient's lab results. Result diagrams: 04/21/18 19:35 04/21/18 19:35 Lab Results 04/21/18 04/21/18 04/21/18 Range/Units 19:35 19:35 20:00 WBC 18.0 H (4.5-11.0) X10^3/uL RBC 3.08 L (4.0-5.2) X10^6/uL Hgb 10.0 L (12.0-16.0) g/dL Hct 28.7 L (36-46) % MCV 93.3 (80-100) fL MCH 32.5 (26-34) PG MCHC 34.8 (30-36) % RDW 13.6 (11.6-14.8) % Plt Count 182 (150-400) X10^3/uL Neut % (Auto) 93.3 H (50-75) % Lymph % (Auto) 4.1 L (25-40) % [place] % (Auto) 2.5 L (3-14) % Eos % (Auto) 0.0 L (2-4) % Baso % (Auto) 0.1 (0-2) % Neut # (Auto) 23116 H (7480-0259) /uL Sodium 139 (137-145) mmol/L Potassium 3.5 (3.4-5.1) mmol/L Chloride 109 H (98-107) mmol/L Carbon Dioxide 21 L (22-32) mmol/L BUN 7 (7-17) mg/dL Creatinine 0.50 L (0.52-1.04) mg/dL Estimated GFR > 60.0 (>60) mL/min BUN/Creatinine Ratio 14.0 (6-22) Glucose 123 H (70-100) mg/dL Lactate 0.7 (0.7-2.1) mmol/L Calcium 8.9 (8.4-10.2) mg/dL MDM Narrative Medical decision making narrative: I discussed case with ENT doctor Marion, who at this time had no further recommendations and will see her in office early next week. Patient overall is feeling better and is ready and able to go home. The morphine helped with pain. Discharge Plan Departure Patient Disposition: Home Clinical Impression: Acute sialoadenitis Discharge Date/Time: 04/21/18 22:02 Interventions: ED Discharge Assessment Last Done: 04/21/18 22:01 Instructions: Parotitis Activity Restrictions/Additional Instructions: *You have been diagnosed with sialoadenitis *What to do: Increase fluid intake *Continue to take medications as directed Finish all medications and take them as directed [place] 1 tablet every 4 hr or 2 tablets every 6 hr if needed for severe pain *Follow up with your primary care provider in 2-3 days, Call ENT thing Monday morning they will see you knee office early next week *Return to ER if you should have fever, difficulty swallowing, difficulty breathing or any new, worsening or concerning symptoms CONTROLLED SUBSTANCE DISCHARGE (Narcotoic/benzodiazepine/Flexeril/Phenergan) 1. You have been prescribed narcotic medications, it does have acetaminophen/Tylenol/paracetamol in it so do not take extra Tylenol or Tylenol containing products 2. Please understand that we cannot provide further refills of narcotics, benzodiazepines or controlled substances through the ED and her pain management will need to be through your provider. 3. While on these medications you cannot drive or operate heavy machinery. 4. You cannot sign legal documents or perform any duties such as this. 5. As long as you're taking opiate pain medications he should also be taking a stool softener such as Colace, Dulcolax, MiraLAX or prune juice, to help avoid constipation. Prescriptions: New hydrocodone-acetaminophen [[place]] 5-325 mg tablet 1 tab PO Q4-6H PRN (Reason: pain (scale score 4-6)) Qty: 10 RF: 0 No Action fluticasone [Flonase Allergy Relief] 9.9 ML spray,suspension 1 spray Intranasal QDAY Qty: 0 RF: 0 aspirin 81 mg tablet,delayed release (DR/EC) 1 tab PO DAILY RF: 0 albuterol sulfate [ProAir HFA] 90 mcg/actuation HFA aerosol inhaler 1 puff Inhalation DIRECTED RF: 0 loratadine 10 mg tablet 10 mg PO DAILY RF: 0 [id number] fum-folic 27 mg iron- 800 mcg tablet 1 tab PO DAILY RF: 0 olopatadine [[place]aze[place]] 0.7 % drops 1 drp ophthalmic (eye) DIRECTED RF: 0 acetaminophen 325 mg Tablet 1 tab PO PRN PRN (Reason: Pain, Mild) RF: 0 cyanocobalamin (vitamin B-12) [Vitamin B-12] 1,000 mcg Tablet 1 tab PO DAILY RF: 0 folic acid 400 mcg Tablet 0.4 mg PO DAILY RF: 0 cyclosporine [Restasis] 0.05 % [place] 1 drp ophthalmic (eye) DAILY RF: 0 fish,bora,flax oils-om3,6,9no1 [[place] 3-6-9] 400-400-400 mg Capsule 1 cap PO DAILY RF: 0 cholecalciferol (vitamin D3) [Vitamin D3] 5,000 unit Tablet 5,000 unit PO DAILY RF: 0 amoxicillin-pot clavulanate [Augmentin] 875-125 mg tablet 1 tab PO BID Qty: 20 RF: 0 prednisone 10 mg tablet See Label Instructions .ROUTE .COMPLEX Qty: 30 RF: 0 ondansetron [Zofran ODT] 4 mg tablet,disintegrating 4 mg PO Q6H PRN (Reason: nausea and vomiting) Qty: 14 RF: 0 Referrals: [facility] [Provider Group] Camilo Zimmer MD [Primary Care Provider] -
--- NOTE | 2018-04-21 19:36 | ED_ITS ---
HPI - Skin/Abscess/Foreign Bdy General Chief complaint: Skin/Abscess/Foreign Body Stated complaint: LEFT SIDE OF FACE IS SWELLING PAIN Time Seen by Provider: 04/21/18 18:44 Source: patient, family and RN notes reviewed Mode of arrival: ambulatory Limitations: no limitations History of Present Illness HPI narrative: The patient is a 42-year-old female currently 22 weeks with history of soda rinse. She has left-sided facial swelling which started abruptly 36 hr ago. She was seen evaluated yesterday diagnosed with sialoenitis. She was given fluids IV Unasyn and started on prednisone. She says she feels like the swelling is going on around her neck and the pain is coming and going and quite intense at times. She has no trouble swallowing or breathing. He is not feel like her throat is closing. She has been able to keep some fluids down. She has not had her night dose of antibiotics. MD complaint: other Related Data Home Medications Medication Instructions Recorded Confirmed fluticasone [Flonase Allergy 1 spray INTRANASAL QDAY #0 10/08/16 04/20/18 Relief] acetaminophen 1 tab PO PRN PRN 04/20/18 04/20/18 albuterol sulfate [ProAir HFA] 1 puff INHALATION DIRECTED 04/20/18 04/20/18 aspirin 1 tab PO DAILY 04/20/18 04/20/18 cholecalciferol (vitamin D3) 5,000 unit PO DAILY 04/20/18 04/20/18 [Vitamin D3] cyanocobalamin (vitamin B-12) 1 tab PO DAILY 04/20/18 04/20/18 [Vitamin B-12] cyclosporine [Restasis] 1 drp OPHTHALMIC (EYE) DAILY 04/20/18 04/20/18 fish,bora,flax oils-om3,6,9no1 1 cap PO DAILY 04/20/18 04/20/18 [[place] 3-6-9] folic acid 0.4 mg PO DAILY 04/20/18 04/20/18 loratadine 10 mg PO DAILY 04/20/18 04/20/18 olopatadine [Pazeo] 1 drp OPHTHALMIC (EYE) DIRECTED 04/20/18 04/20/18 [id number] fum-folic 1 tab PO DAILY 04/20/18 04/20/18 Previous Rx's Medication Instructions Recorded amoxicillin-pot clavulanate 1 tab PO BID #20 tab 04/20/18 [Augmentin] ondansetron [Zofran ODT] 4 mg PO Q6H PRN #14 tab 04/20/18 prednisone See Label Instructions .ROUTE 04/20/18 .COMPLEX #30 tab hydrocodone-acetaminophen [[place]] 1 tab PO Q4-6H PRN #10 tab 04/21/18 Allergies Allergy/AdvReac Type Severity Reaction Status Date / Time mercury (elemental) Allergy Unknown ANAPHYLAXIS Unverified 11/08/17 12:29 [MERCURY (ELEMENTAL)] latex [LATEX] AdvReac Severe RAASH, Unverified 11/08/17 12:29 BLISTERS amalgam used in dental AdvReac Unknown Uncoded 11/08/17 12:29 Review of Systems Review of Systems All systems reviewed & are unremarkable except as noted in HPI and below Constitutional Denies chills, Denies fever(s), Denies lethargy and Denies weakness ENT Ears, Nose, Mouth, and Throat: Reports as per HPI Cardiovascular Denies chest pain, Denies irregular heart rhythm, Denies lightheadedness, Denies palpitations, Denies dyspnea, Denies dyspnea on exertion and Denies orthopnea Respiratory Denies cough, Denies dyspnea, Denies dyspnea on exertion and Denies wheezing Gastrointestinal Gastrointestinal: Denies abdominal pain, Denies change in bowel habits, Denies diarrhea, Denies nausea and Denies vomiting Musculoskeletal Denies back pain, Denies muscle weakness, Denies numbness and Denies tingling Integumentary/Breasts Denies pruritus, Denies erythema, Denies rash and Denies wounds Neurologic Denies numbness, Denies tingling and Denies weakness Endocrine Denies palpitations Allergic/Immunologic Denies wheezing PFSH Social History Smoking Status: Former smoker Exam Initial Vital Signs Initial Vital Signs: Vital Signs Temperature 98.5 F 04/21/18 18:40 Pulse Rate 90 04/21/18 18:40 Respiratory Rate 18 04/21/18 18:40 Blood Pressure 122/74 04/21/18 18:40 Pulse Oximetry 98 04/21/18 18:40 Const General: cooperative and well developed Nutritional Appearance: well nourished Orientation: alert, awake, oriented x3 and not confused [place]EN[place] Face and sinus: other (Left-sided facial swelling on no erythema no significant neck swelling no trismus) Mouth: oral mucosae normal Neck Neck: normal visual inspection, full ROM, no meningeal signs, trachea midline, supple and No anterior neck swelling Chest Chest: normal inspection of the chest Resp Effort & Inspection: normal respiratory effort and no use of accessory muscles Auscultation: clear to auscultation bilaterally Cardio Rhythm: regular rhythm Heart Sounds: S1 normal and S2 normal Skin General: no rashes or lesions noted, No jaundice and No petechiae Neuro General: alert, oriented x3, gait normal and no focal motor deficits Speech: speech normal Course Orders Ordered: ED Orders 04/21/18 19:35 Basic Metabolic Panel Stat Complete Blood Count AUTO DIFF Stat 04/21/18 20:00 Lactate (Lactic Acid) Stat Discontinued Medications Dexamethasone (Decadron) 10 mg IV NOW ONE Stop: 04/21/18 19:32 Last Admin: 04/21/18 19:53 Dose: 10 mg Ampicillin Sodium/Sulbactam (Sodium 3 gm/ Sodium Chloride) 100 mls @ 100 mls/ hr IV NOW ONE Stop: 04/21/18 19:32 Last Infusion: 04/21/18 21:59 Dose: 0 mls/hr Admin: 04/21/18 20:28 Dose: 100 mls/hr Sodium Chloride (Normal Saline 0.9%) 1,000 mls @ 1,000 mls/hr IV BOLUS ONE Stop: 04/21/18 20:30 Last Infusion: 04/21/18 21:59 Dose: 1,000 mls/hr Admin: 04/21/18 19:51 Dose: 1,000 mls/hr Morphine Sulfate (Morphine) 2 mg IV NOW ONE Stop: 04/21/18 19:32 Last Admin: 04/21/18 19:53 Dose: 2 mg Vital Signs - 8 hr 04/21/18 18:40 04/21/18 19:00 04/21/18 20:30 Temperature 98.5 F Pulse Rate 90 76 Respiratory Rate 18 Blood Pressure 122/74 Blood Pressure [Right Arm] 105/67 119/74 Pulse Oximetry 98 97 04/21/18 21:30 Temperature Pulse Rate 86 Respiratory Rate Blood Pressure Blood Pressure [Right Arm] 125/82 Pulse Oximetry 98 MDM - Skin/Abscess/Foreign Bdy Lab Data Attestation: I reviewed the patient's lab results. Result diagrams: 04/21/18 19:35 04/21/18 19:35 Lab Results 04/21/18 04/21/18 04/21/18 Range/Units 19:35 19:35 20:00 WBC 18.0 H (4.5-11.0) X10^3/uL RBC 3.08 L (4.0-5.2) X10^6/uL Hgb 10.0 L (12.0-16.0) g/dL Hct 28.7 L (36-46) % MCV 93.3 (80-100) fL MCH 32.5 (26-34) PG MCHC 34.8 (30-36) % RDW 13.6 (11.6-14.8) % Plt Count 182 (150-400) X10^3/uL Neut % (Auto) 93.3 H (50-75) % Lymph % (Auto) 4.1 L (25-40) % [place] % (Auto) 2.5 L (3-14) % Eos % (Auto) 0.0 L (2-4) % Baso % (Auto) 0.1 (0-2) % Neut # (Auto) 89372 H (5785-8179) /uL Sodium 139 (137-145) mmol/L Potassium 3.5 (3.4-5.1) mmol/L Chloride 109 H (98-107) mmol/L Carbon Dioxide 21 L (22-32) mmol/L BUN 7 (7-17) mg/dL Creatinine 0.50 L (0.52-1.04) mg/dL Estimated GFR > 60.0 (>60) mL/min BUN/Creatinine Ratio 14.0 (6-22) Glucose 123 H (70-100) mg/dL Lactate 0.7 (0.7-2.1) mmol/L Calcium 8.9 (8.4-10.2) mg/dL MDM Narrative Medical decision making narrative: I discussed case with ENT doctor Marion, who at this time had no further recommendations and will see her in office early next week. Patient overall is feeling better and is ready and able to go home. The morphine helped with pain. Discharge Plan Departure Patient Disposition: Home Clinical Impression: Acute sialoadenitis Discharge Date/Time: 04/21/18 22:02 Interventions: ED Discharge Assessment Last Done: 04/21/18 22:01 Instructions: Parotitis Activity Restrictions/Additional Instructions: *You have been diagnosed with sialoadenitis *What to do: Increase fluid intake *Continue to take medications as directed Finish all medications and take them as directed [place] 1 tablet every 4 hr or 2 tablets every 6 hr if needed for severe pain *Follow up with your primary care provider in 2-3 days, Call ENT thing Monday morning they will see you knee office early next week *Return to ER if you should have fever, difficulty swallowing, difficulty breathing or any new, worsening or concerning symptoms CONTROLLED SUBSTANCE DISCHARGE (Narcotoic/benzodiazepine/Flexeril/Phenergan) 1. You have been prescribed narcotic medications, it does have acetaminophen/ Tylenol/paracetamol in it so do not take extra Tylenol or Tylenol containing products 2. Please understand that we cannot provide further refills of narcotics, benzodiazepines or controlled substances through the ED and her pain management will need to be through your provider. 3. While on these medications you cannot drive or operate heavy machinery. 4. You cannot sign legal documents or perform any duties such as this. 5. As long as you're taking opiate pain medications he should also be taking a stool softener such as Colace, Dulcolax, MiraLAX or prune juice, to help avoid constipation. Prescriptions: New hydrocodone-acetaminophen [[place]] 5-325 mg tablet 1 tab PO Q4-6H PRN (Reason: pain (scale score 4-6)) Qty: 10 RF: 0 No Action fluticasone [Flonase Allergy Relief] 9.9 ML spray,suspension 1 spray Intranasal QDAY Qty: 0 RF: 0 aspirin 81 mg tablet,delayed release (DR/EC) 1 tab PO DAILY RF: 0 albuterol sulfate [ProAir HFA] 90 mcg/actuation HFA aerosol inhaler 1 puff Inhalation DIRECTED RF: 0 loratadine 10 mg tablet 10 mg PO DAILY RF: 0 [id number] fum-folic 27 mg iron- 800 mcg tablet 1 tab PO DAILY RF: 0 olopatadine [Paze[place]] 0.7 % drops 1 drp ophthalmic (eye) DIRECTED RF: 0 acetaminophen 325 mg Tablet 1 tab PO PRN PRN (Reason: Pain, Mild) RF: 0 cyanocobalamin (vitamin B-12) [Vitamin B-12] 1,000 mcg Tablet 1 tab PO DAILY RF: 0 folic acid 400 mcg Tablet 0.4 mg PO DAILY RF: 0 cyclosporine [Restasis] 0.05 % [place] 1 drp ophthalmic (eye) DAILY RF: 0 fish,bora,flax oils-om3,6,9no1 [[place] 3-6-9] 400-400-400 mg Capsule 1 cap PO DAILY RF: 0 cholecalciferol (vitamin D3) [Vitamin D3] 5,000 unit Tablet 5,000 unit PO DAILY RF: 0 amoxicillin-pot clavulanate [Augmentin] 875-125 mg tablet 1 tab PO BID Qty: 20 RF: 0 prednisone 10 mg tablet See Label Instructions .ROUTE .COMPLEX Qty: 30 RF: 0 ondansetron [Zofran ODT] 4 mg tablet,disintegrating 4 mg PO Q6H PRN (Reason: nausea and vomiting) Qty: 14 RF: 0 Referrals: [facility] [Provider Group] Camilo Zimmer MD [Primary Care Provider] -
[2018-04-21 19:49] LABS: Add Manual Diff / Slide Review NO; Basophils Percent Auto 0.1 % (0-2); Hematocrit 28.7 % (36-46); Lymphocytes Percent Auto 4.1 % (25-40); Mean Corpuscular HGB Conc 34.8 % (30-36); Mean Corpuscular Hemoglobin 32.5 PG (26-34); Mean Corpuscular Volume 93.3 fL (80-100); Monocytes Percent Auto 2.5 % (3-14); Neutrophils Absolute Auto 16800 /uL (3000-5900); Neutrophils Percent Auto 93.3 % (50-75); Platelet Count 182 X10^3/uL (150-400); Red Blood Cell Count 3.08 X10^6/uL (4.0-5.2); Red Cell Distribution Width 13.6 % (11.6-14.8)
[2018-04-21] MEDS: SODIUM CHLORIDE 0.9% 1,000 ML 1000 ML IV (19:51)
[2018-04-21] MEDS: MORPHINE 2 MG/ML INJ IV (19:53)
[2018-04-21] MEDS: DEXAMETHASONE 10 MG/ML VIAL IV (19:53)
[2018-04-21 19:59] LABS: Blood Urea Nitrogen 7 mg/dL (7-17); Calcium 8.9 mg/dL (8.4-10.2); Carbon Dioxide 21 mmol/L (22-32); Chloride 109 mmol/L (98-107); Estimated Glomerular Filt Rate > 60.0 mL/min (>60); Glucose 123 mg/dL (70-100); HEMOLYSIS < 15 (0-50); Potassium 3.5 mmol/L (3.4-5.1); Sodium 139 mmol/L (137-145)
[2018-04-21 20:24] LABS: Lactate (Lactic Acid) 0.7 mmol/L (0.7-2.1)
[2018-04-21] MEDS: AMPICILLIN/SULBACTAM 3 GM 3 GM in SODIUM CHLORIDE 0.9% 100 ML IV (20:28)
[2018-04-21 20:30] VITALS: BP 119/74; PULSE 76; O2SAT 97
[2018-04-21 21:30] VITALS: BP 125/82; PULSE 86; O2SAT 98
== END 2018-04-21 22:02 | disposition home or self-care (01) ==
PROVIDERS: Emergency Provider Emergency Medicine; Family Provider Obstetrics & Gynecology; PCP Family Medicine
DX: O26.892 Other specified pregnancy related conditions, second trimester (principal); K11.21 Acute sialoadenitis; Z3A.22 22 weeks gestation of pregnancy
CPT/HCPCS: 36591; 80048; 83605; 85025; 96361; 96365; 96366; 96375; 99283; 99284; J0295; J1100; J2270

== ENCOUNTER → 2018-04-27 13:32 | Outpatient (REF) | payer OTHER, SELFPAY | LOC: LAB 13:32 | PROVIDERS: Family Provider Obstetrics & Gynecology; PCP Family Medicine; Visit Provider Otolaryngology | DX: K11.21 Acute sialoadenitis (principal) | CPT/HCPCS: 87070; 87205 ==

== ENCOUNTER → 2019-05-02 18:09 | Outpatient (CLI) | payer OTHER, SELFPAY ==
--- NOTE | 2019-05-02 18:16 | DI.RAD.S_ITS ---
PROCEDURE: XR ABDOMEN 1V INDICATIONS: NOCTURIA TECHNIQUE: One view of the abdomen acquired. COMPARISON: [facility], [place] XRAY (1 VIEW ABDOMEN), 04/03/2014, 8:06. FINDINGS: Surgical changes and devices: None. Bowel: Bowel gas pattern is normal. Soft tissues: A pair of right-sided abdominal calcifications project in the region of the right kidney measuring 5 and 4 mm. Bones: No suspicious bony lesions. IMPRESSION: Right nephrolithiasis measuring up to 5 mm. These appear new since 04/03/14 Dictated by: Jay Tinajero M.D. on 05/03/2019 at 9:10 Approved by: Jay Tinajero M.D. on 05/03/2019 at 9:11
== END ==
PROVIDERS: Family Provider Obstetrics & Gynecology; PCP Family Medicine; Visit Provider Urology
DX: R35.1 Nocturia (principal); N20.0 Calculus of kidney
CPT/HCPCS: 74018

== ENCOUNTER 2020-03-10 11:56 | Emergency (ER) | payer OTHER, SELFPAY ==
[2020-03-10 12:05] VITALS: BP 144/71; PULSE 76; RESP 14; TEMP 37.1; O2SAT 99; BMI 28.3
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
[2020-03-10] MEDS: HYDROCODONE/ACET 5/325 TABLET 1 TAB PO (13:12)
[2020-03-10] MEDS: ACETAMINOPHEN 325 MG TABLET PO (13:13)
[2020-03-10 13:21] VITALS: BP 121/70; PULSE 68; RESP 14; O2SAT 100
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
== END 2020-03-10 13:37 | disposition home or self-care (01) ==
PROVIDERS: Emergency Provider Nurse Practitioner Family; Family Provider Obstetrics & Gynecology; PCP Family Medicine
DX: S80.12XA Contusion of left lower leg, initial encounter (principal); V29.9XXA Motorcycle rider (driver) (passenger) injured in unspecified traffic accident, initial encounter
CPT/HCPCS: 73560; 73590; 99283; 99284

== ENCOUNTER → 2025-01-02 09:17 | Outpatient (CLI) | payer OTHER, SELFPAY ==
[2025-01-02 10:12] LABS: BUN Creatinine Ratio 14.5 (6-22); Blood Urea Nitrogen 12 mg/dL (7-17); Calcium 9.5 mg/dL (8.4-10.2); Carbon Dioxide 22 mmol/L (22-32); Chloride 107 mmol/L (98-107); Estimated Glomerular Filt Rate > 60 mL/min (>60); Glucose 91 mg/dL (70-99); HDL Cholesterol 54 mg/dL (40-60); HEMOLYSIS < 15 (0-50); Potassium 4.5 mmol/L (3.4-5.1); Sodium 136 mmol/L (137-145)
[2025-01-02 10:14] LABS: Cholesterol 201 mg/dL (140-199); LDL Cholesterol Calculated 126 mg/dL (<100); Triglycerides 107 mg/dL (35-150)
[2025-01-02 10:25] LABS: Creatinine Urine Random 103.62 mg/dL
[2025-01-02 10:51] LABS: HIV 1 & 2 Ab/Ag 4th Gen Combo NEGATIVE (NEGATIVE); Hep C Virus Ab w/Reflex Quant NEGATIVE s/c (NEGATIVE)
== END ==
PROVIDERS: Family Provider Obstetrics & Gynecology; PCP Nurse Practitioner Family; Referring Provider Nurse Practitioner Family; Visit Provider Nurse Practitioner Family
DX: I10 Essential (primary) hypertension (principal); Z12.11 Encounter for screening for malignant neoplasm of colon; Z11.59 Encounter for screening for other viral diseases; Z13.220 Encounter for screening for lipoid disorders; Z11.4 Encounter for screening for human immunodeficiency virus [HIV]
CPT/HCPCS: 36415; 80048; 80061; 82043; 82570; 86803; 87389